=== PATIENT | female | born 1940 | race Caucasian/White ===

== ENCOUNTER → 2020-11-18 | Outpatient (CLI) | payer MEDICARE | END | disposition home or self-care (01) | LOC: US 08:25 | PROVIDERS: ATTEND Physician Assistant Medical | DX: K74.60 Unspecified cirrhosis of liver (principal); K76.89 Other specified diseases of liver; D35.01 Benign neoplasm of right adrenal gland; N28.1 Cyst of kidney, acquired; E27.8 Other specified disorders of adrenal gland ==